=== PATIENT | male | born 1990 | race Caucasian/White ===

== ENCOUNTER 2017-12-11 21:39 | Emergency (ER) | payer OTHER ==
[~2017-12-11] VITALS: Ht 182.9 cm; Wt 90.0 kg
[2017-12-11 21:41] VITALS: BP 151/68; PULSE 92; RESP 16; TEMP 100; O2SAT 100
[2017-12-11] MEDS ORDERED: ONDANSETRON HCL 4 MG/2 ML VIAL IV PUSH ONE (22:15)
[2017-12-11] MEDS ORDERED: KETOROLAC TROMETHAMINE 30 MG/ML (IVP) VIAL IV PUSH ONE (22:15)
[2017-12-11] MEDS ORDERED: SODIUM CHLOR 0.9% 1000 ML INJ 1,000 ML IV ONE (22:15)
[2017-12-11] MEDS ORDERED: ZOFR4TAB3 SL (23:13)
--- NOTE | 2017-12-11 23:13 | PD ---
HPI . Cold/flu symptoms Chief Complaint: Cold / Flu Symptoms Time Seen by Provider: 22:01 Travel History International Travel<30 days: No Contact w/Intl Traveler<30days: No Traveled to known affect area: No History of Present Illness HPI 27-year-old male with no significant past medical history notes feeling shaky, body aches and chills, diffuse abdominal ache and with intense nausea shortly after eating pancakes this morning. Patient is not sure it was secondary to eating his pancakes however. Patient feels feverish but is unquantified. Denies headache, visual changes, stiff neck, chest pain, cough, shortness of breath, leg pain or swelling, rashes. No significant travel history. Patient is originally from [facility] but has been here for some time. Patient is a daily smoker greater than 1 pack per day but is trying to quit. Smoking cessation discussed [facility] Past Medical History Narrative Medical No significant past medical history Diminished Hearing: No Social History Alcohol Use: No Tobacco Use: No Substance Use: No Allergies-Medications (Allergen,Severity, Reaction): Coded Allergies: No Known Allergies (Unverified , 12/11/17) Narrative Medication Allergies and medications reviewed Review of Systems Except as stated in HPI: all other systems reviewed are Neg General / Constitutional: No: Fever Eyes: No: Visual changes HENT: No: Headaches Cardiovascular: No: Chest Pain or Discomfort Respiratory: No: Shortness of Breath Gastrointestinal: Positive: Nausea, Abdominal Pain, No: Vomiting, Diarrhea, Hematemesis, Hematochezia, Constipation, Changes in Bowel Habits, Indigestion, Dysphagia, Loss of Appetite Genitourinary: No: Dysuria Musculoskeletal: Positive: Myalgias, Arthralgias, No: Limited ROM, Pain Skin: No Rash Neurologic: No: Weakness Psychiatric: No: Depression Endocrine: No: Polydipsia Hematologic/Lymphatic: No: Easy Bruising Physical Exam Narrative GENERAL: Awake alert oriented 3 no acute distress. Patient is somewhat ill- appearing. Vital signs afebrile normal stable SKIN: Warm and dry. Color is sallow, no diaphoresis cyanosis pallor or rashes HEAD: Atraumatic. Normocephalic. EYES: Pupils equal and round. No scleral icterus. No injection or drainage. ENT: No nasal bleeding or discharge. Mucous membranes pink and moist. No oral lesions NECK: Trachea midline. No JVD. Supple full range of motion nontender CARDIOVASCULAR: Regular rate and rhythm. S1-S2 no murmurs rubs gallops RESPIRATORY: No accessory muscle use. Clear to auscultation. Breath sounds equal bilaterally. GASTROINTESTINAL: Abdomen soft, non-tender, nondistended. Hepatic and splenic margins not palpable. MUSCULOSKELETAL: Extremities without clubbing, cyanosis, or edema. No obvious deformities. NEUROLOGICAL: Awake and alert. No obvious cranial nerve deficits. Motor grossly within normal limits. Five out of 5 muscle strength in the arms and legs. Normal speech. PSYCHIATRIC: Appropriate mood and affect; insight and judgment normal. Data Data Last Documented VS Vital Signs Date Time Temp Pulse Resp B/P (MAP) Pulse Ox O2 Delivery O2 Flow Rate FiO2 12/11/17 21:41 100.0 92 16 151/68 (95) 100 Room Air Orders Orders Influenzae A/B Antigen (12/11/17 22:04) Iv Access Insert/Monitor (12/11/17 22:04) Sodium Chlor 0.9% 1000 Ml Inj (Ns 1000 M (12/11/17 22:15) Ondansetron Inj (Zofran Inj) (12/11/17 22:15) Ketorolac Inj (Toradol Inj) (12/11/17 22:15) MDM Medical Decision Making Medical Screen Exam Complete: Yes Emergency Medical Condition: Yes Medical Record Reviewed: Yes Differential Diagnosis Influenza, viral syndrome, food poisoning Narrative Course Influenza negative. Patient improved with IV Zofran and Toradol and IV fluids. Tolerating p.o. Discharge Diagnosis Primary Impression: Viral syndrome Patient Instructions: General Instructions, Viral Syndrome (ED) Additional Instructions: Zofran 4 mg ODT every 6-8 hours for nausea/vomiting. Ibuprofen 400 mg every 8 hours as needed for aches and pains and fever. Drink plenty of fluids. Follow- up with your doctor/[facility]. Return promptly for worsening Scripts Ondansetron Odt (Zofran Odt) 4 Mg Tab 4 MG SL Q8HR Y for Nausea/Vomiting, #15 TAB 0 Refills Prov: Oscar Colunga MD 12/11/17 Disposition: 01 DISCHARGE HOME Condition: Stable Oscar Colunga MD Dec 11, 2017 23:13
== END 2017-12-11 23:55 | disposition home or self-care (01) ==
LOC: NEPC 21:39
DX: B34.9 Viral infection, unspecified (principal)
CPT/HCPCS: 87804; 96374; 96375; 99284; J1885; J2405; J7030